=== PATIENT | male | born 1985 | race Caucasian/White ===

== ENCOUNTER 2019-04-29 14:41 | Emergency (ER) | payer BC ==
[~2019-04-29] VITALS: Ht 182.9 cm; Wt 81.6 kg
[2019-04-29] MEDS ORDERED: LIDOCAINE HCL 1% LOCAL INJ 20 ML VIAL ONE (14:58)
[2019-04-29] MEDS ORDERED: TETANUS/DIPHTHERIA TOX ADULT 0.5 ML SYR ONE (14:58)
[2019-04-29] MEDS ORDERED: TETANUS/DIPHTHERIA TOX ADULT 0.5 ML SYR IM ONE (15:00)
[2019-04-29] MEDS ORDERED: LIDOCAINE HCL 1% LOCAL INJ 20 ML VIAL INJ ONE (15:15)
[2019-04-29] MEDS ORDERED: LIDOCAINE HCL 1% 2 ML AMP INJ NR (15:30)
[2019-04-29] MEDS ORDERED: BACITRACIN ZINC 0.9GM TP ONE (15:30)
== END 2019-04-29 15:47 | disposition home or self-care (01) ==
LOC: ER 14:41
DX: S61.313A Laceration without foreign body of left middle finger with damage to nail, initial encounter (principal); W45.8XXA Other foreign body or object entering through skin, initial encounter; Y92.008 Other place in unspecified non-institutional (private) residence as the place of occurrence of the external cause; F17.290 Nicotine dependence, other tobacco product, uncomplicated
CPT/HCPCS: 12001; 90471; 90714; 99283; J2001